=== PATIENT | male | born 1945 | race Caucasian/White ===

== ENCOUNTER 2021-07-11 06:04 | Emergency (ER) | payer OTHER, SELFPAY ==
[2021-07-11] VITALS (11 sets, daily range): BP systolic 127–191; BP diastolic 60–80; PULSE 40–54; RESP 16–22; TEMP 36.1; O2SAT 93–97
--- NOTE | 2021-07-11 06:14 | ED_ITS ---
HPI - Chest Pain <Becki Ko DO - Last Filed: 07/15/21 07:13> General Chief Complaint: Chest Pain Stated Complaint: chest pain Time Seen by Provider: 07/11/21 06:14 History of Present Illness HPI narrative: Patient is a 76-year-old male history of atrial fibrillation with ablation, hypertension hyperlipidemia presenting today with chest discomfort. He got up this morning getting himself ready for work. He a had the some pressure in his chest thought it was acid reflux but it has been continuing on for about 1 hour. It is now radiating up to his jaw and he feels nauseous. He has no shortness of breath with exertion he denies palpitations. He has no prior history of coronary artery disease is. He feels heaviness and pressure in his chest. He i s noted to be quite bradycardic in the 40s he says typically he does have a low heart rate but it is usually in the 50s. Related Data Allergies Allergy/AdvReac Type Severity Reaction Status Date / Time Iodinated Contrast Media Allergy Verified 07/11/21 06:26 codeine AdvReac Verified 07/11/21 06:26 Review of Systems <Becki Ko DO - Last Filed: 07/15/21 07:13> Review of Systems Narrative: GENERAL: Denies chills, fatigue, malaise, fever, sweats, travel HEENT: Denies sinus pain, ear pain, sore throat, difficulty swallowing, neck pain RESPIRATORY: Denies dyspnea, cough, wheezing, hemoptysis, sputum. CARDIOVASCULAR: See HPI GASTROINTESTINAL: Denies nausea, vomiting, abdominal pain, diarrhea, constipa tion, melena. : Denies dysuria, frequency, incontinence, hematuria, urinary retention, flank pain. MUSCULOSKELETAL: Denies weakness, joint pain, or bony pain SKIN: No rash, no erythema, no pruritus NEUROLOGIC: Denies weakness, dizziness, headache, numbness, change in speech, confusion PSYCHIATRIC: No concerning psychosocial issues. 12 point review of systems is negative except for those stated above and HPI Patient History <Becki Ko DO - Last Filed: 07/15/21 07:13> Social History Smoking Status: Never smoker Exam <DO Alfreda Olivier Last Filed: 07/15/21 07:13> Initial Vital Signs Initial Vital Signs: Vital Signs Temperature 97 F L 07/11/21 06:05 Pulse Rate 54 L 07/11/21 06:05 Respiratory Rate 21 07/11/21 06:05 Blood Pressure 191/80 H 07/11/21 06:05 Pulse Oximetry 97 07/11/21 06:05 GENERAL: Alert 76-year-old male appears comfortable. HEENT: Head atraumatic,EOMI, pupils reactive, face symmetric, moist mucous membranes CARDIOVASCULAR: Regular rate and rhythm without murmurs, rubs or gallops. RESPIRATORY: Breath sounds equal bilaterally, no wheezes rales or rhonchi. ABDOMEN: Soft, nontender. Normoactive bowel sounds all 4 quadrants. No guarding or rebound. EXTREMITIES: Normal range of motion, no clubbing or edema. Neurovascularly intact NEUROLOGICAL: Alert and oriented x4.Normal gait and speech. SKIN: Warm, dry, no laceration, no petechiae, no rashes or lesions. <Davy Nagy DO - Last Filed: 07/11/21 09:47> Initial Vital Signs Initial Vital Signs: Vital Signs Temperature 97 F L 07/11/21 06:05 Pulse Rate 54 L 07/11/21 06:05 Respiratory Rate 21 07/11/21 06:05 Blood Pressure 191/80 H 07/11/21 06:05 Pulse Oximetry 97 07/11/21 06:05 Course <Becki Ko DO - Last Filed: 07/15/21 07:13> Orders Ordered: Discontinued Medications Aspirin (Aspirin 81 Mg Chew Tab) 324 mg PO NOW ONE Stop: 07/11/21 06:22 Last Admin: 07/11/21 06:29 Dose: 324 mg Documented by: SYED Nitroglycerin (Nitroglycerin 0.4 Mg Sl Tab) 0.4 mg SL [id number] PRN PRN Reason: Chest Pain Last Admin: 07/11/21 06:42 Dose: 0.4 mg Documented by: Admin: 07/11/21 06:29 Dose: 0.4 mg Documented by: SYED Vital Signs Vital signs: Vital Signs - 8 hr 07/11/21 06:05 Temperature 97 F L Pulse Rate 54 L Respiratory Rate 21 Blood Pressure 191/80 H Pulse Oximetry 97 <DO Alfreda Iglesias Last Filed: 07/11/21 09:47> Orders Ordered: Discontinued Medications Aspirin (Aspirin 81 Mg Chew Tab) 324 mg PO NOW ONE Stop: 07/11/21 06:22 Last Admin: 07/11/21 06:29 Dose: 324 mg Documented by: SYED Nitroglycerin (Nitroglycerin 0.4 Mg Sl Tab) 0.4 mg SL [id number] PRN PRN Reason: Chest Pain Last Admin: 07/11/21 06:42 Dose: 0.4 mg Documented by: Admin: 07/11/21 06:29 Dose: 0.4 mg Documented by: SYED Vital Signs Vital signs: Vital Signs - 8 hr 07/11/21 06:05 Temperature 97 F L Pulse Rate 54 L Respiratory Rate 21 Blood Pressure 191/80 H Pulse Oximetry 97 MDM - Chest Pain <Becki Ko DO - Last Filed: 07/15/21 07:13> Lab Data Result diagrams: 07/11/21 06:15 07/11/21 06:15 Labs: Lab Results 07/11/21 07/11/21 07/11/21 Range/Units 06:15 06:15 06:15 WBC 6.5 (4.5-11.0) X10^3/uL RBC 4.83 (4.5-5.9) X10^6/uL Hgb 14.8 (13.5-17.5) g/dL Hct 43.5 (41-53) % MCV 90.1 (80-100) fL MCH 30.6 (26-34) PG MCHC 33.9 (30-36) % RDW 12.5 (11.6-14.8) % Plt Count 143 L (150-400) X10^3/uL Neut % (Auto) 60.5 (50-75) % Lymph % (Auto) 24.5 L (25-40) % [place] % (Auto) 9.7 (3-14) % Eos % (Auto) 4.8 H (2-4) % Baso % (Auto) 0.5 (0-2) % Neut # (Auto) 4000 (0481-3429) /uL Lymph # (Auto) 1600 (2969-7907) /uL [place] # (Auto) 600 (0-900) /uL Eos # (Auto) 300 (0-450) /uL Baso # (Auto) 0 (0-100) /uL PT 11.0 (10.1-12.7) SECONDS INR 1.0 (0.9-1.3) APTT 30 (26.4-36.2) SECONDS Sodium 137 (137-145) mmol/L Potassium 4.4 (3.4-5.1) mmol/L Chloride 104 (98-107) mmol/L Carbon Dioxide 26 (22-32) mmol/L BUN 24 H (9-20) mg/dL Creatinine 1.28 H (0.66-1.25) mg/dL Estimated GFR 58 L (>60) mL/min BUN/Creatinine Ratio 18.8 (6-22) Glucose 97 (80-110) mg/dL Calcium 8.6 (8.4-10.2) mg/dL Magnesium 2.4 H (1.6-2.3) mg/dL Total Bilirubin 0.8 (0.2-1.3) mg/dL AST 30 (17-59) IU/L ALT 29 (<50) IU/L Alkaline Phosphatase 43 (38-126) U/L Total Creatine Kinase 211 H (55-170) U/L CK-MB (CK-2) 4.76 H (<2.37) ng/mL CK-MB (CK-2) Rel Index 2.3 (1.5-5.0) % Troponin I < 0.012 (0.01-0.034) ng/mL NT-Pro-B Natriuret Pep (<450) pg/mL Total Protein 7.2 (6.3-8.2) g/dL Albumin 4.3 (3.5-5.0) g/dL Globulin 2.9 (1.7-4.1) g/dL Albumin/Globulin Ratio 1.5 (1.0-2.8) Lipase 46 (23-300) U/L 07/11/21 07/11/21 Range/Units 06:15 08:30 WBC (4.5-11.0) X10^3/uL RBC (4.5-5.9) X10^6/uL Hgb (13.5-17.5) g/dL Hct (41-53) % MCV (80-100) fL MCH (26-34) PG MCHC (30-36) % RDW (11.6-14.8) % Plt Count (150-400) X10^3/uL Neut % (Auto) (50-75) % Lymph % (Auto) (25-40) % [place] % (Auto) (3-14) % Eos % (Auto) (2-4) % Baso % (Auto) (0-2) % Neut # (Auto) (1377-7972) /uL Lymph # (Auto) (9912-7579) /uL [place] # (Auto) (0-900) /uL Eos # (Auto) (0-450) /uL Baso # (Auto) (0-100) /uL PT (10.1-12.7) SECONDS INR (0.9-1.3) APTT (26.4-36.2) SECONDS Sodium (137-145) mmol/L Potassium (3.4-5.1) mmol/L Chloride (98-107) mmol/L Carbon Dioxide (22-32) mmol/L BUN (9-20) mg/dL Creatinine (0.66-1.25) mg/dL Estimated GFR (>60) mL/min BUN/Creatinine Ratio (6-22) Glucose (80-110) mg/dL Calcium (8.4-10.2) mg/dL Magnesium (1.6-2.3) mg/dL Total Bilirubin (0.2-1.3) mg/dL AST (17-59) IU/L ALT (<50) IU/L Alkaline Phosphatase (38-126) U/L Total Creatine Kinase (55-170) U/L CK-MB (CK-2) (<2.37) ng/mL CK-MB (CK-2) Rel Index (1.5-5.0) % Troponin I < 0.012 (0.01-0.034) ng/mL NT-Pro-B Natriuret Pep 165 (<450) pg/mL Total Protein (6.3-8.2) g/dL Albumin (3.5-5.0) g/dL Globulin (1.7-4.1) g/dL Albumin/Globulin Ratio (1.0-2.8) Lipase (23-300) U/L Imaging Data Chest x-ray: Radiologist's Impression: t: SuzeJose MR#: [id number] : 1945 Acct:[id number] Age/Sex: 76 / M Date of Service: 07/11/21 Loc: ED Accession Number: [id number] ?? Procedure: XR chest 1V Ordering Provider: Becki Ko D.O. PROCEDURE:? XR CHEST 1V ? INDICATIONS:? chest pain ? TECHNIQUE:? One view of the chest was acquired.? ? COMPARISON:? None. ? FINDINGS:? ? Surgical changes and devices:? Lead less cardiac pacer.? Surgical clips project over the mid mediastinum.? ? Lungs and pleura:? Lungs are clear.? No pleural effusions or pneumothorax.? Eventration of the right hemidiaphragm.? ? Mediastinum:? Mediastinal contours appear normal.? Heart size is normal.? ? Bones and chest wall:? Prior resection of distal right clavicle.? No suspicious bony lesions.? Overlying soft tissues appear unremarkable.? ? IMPRESSION:? No acute cardiopulmonary disease process. ? ? Dictated by: Patricia Dominguez MD, PhD on 07/11/2021 at 7:54 ? ? ECG Data Interpretation: EKG number rhythm rate [address] elevations Q-wave noted in aVL no priors to compare MDM Narrative Medical decision making narrative: Patient's symptoms and history are certainly concerning. Initial troponin is negative. Patient is signed out to Dr. Nagy for further management. <Davy Nagy, DO - Last Filed: 07/11/21 09:47> Lab Data Labs: Lab Results 07/11/21 07/11/21 07/11/21 Range/Units 06:15 06:15 06:15 WBC 6.5 (4.5-11.0) X10^3/uL RBC 4.83 (4.5-5.9) X10^6/uL Hgb 14.8 (13.5-17.5) g/dL Hct 43.5 (41-53) % MCV 90.1 (80-100) fL MCH 30.6 (26-34) PG MCHC 33.9 (30-36) % RDW 12.5 (11.6-14.8) % Plt Count 143 L (150-400) X10^3/uL Neut % (Auto) 60.5 (50-75) % Lymph % (Auto) 24.5 L (25-40) % [place] % (Auto) 9.7 (3-14) % Eos % (Auto) 4.8 H (2-4) % Baso % (Auto) 0.5 (0-2) % Neut # (Auto) 4000 (9524-4347) /uL Lymph # (Auto) 1600 (4879-9940) /uL [place] # (Auto) 600 (0-900) /uL Eos # (Auto) 300 (0-450) /uL Baso # (Auto) 0 (0-100) /uL PT 11.0 (10.1-12.7) SECONDS INR 1.0 (0.9-1.3) APTT 30 (26.4-36.2) SECONDS Sodium 137 (137-145) mmol/L Potassium 4.4 (3.4-5.1) mmol/L Chloride 104 (98-107) mmol/L Carbon Dioxide 26 (22-32) mmol/L BUN 24 H (9-20) mg/dL Creatinine 1.28 H (0.66-1.25) mg/dL Estimated GFR 58 L (>60) mL/min BUN/Creatinine Ratio 18.8 (6-22) Glucose 97 (80-110) mg/dL Calcium 8.6 (8.4-10.2) mg/dL Magnesium 2.4 H (1.6-2.3) mg/dL Total Bilirubin 0.8 (0.2-1.3) mg/dL AST 30 (17-59) IU/L ALT 29 (<50) IU/L Alkaline Phosphatase 43 (38-126) U/L Total Creatine Kinase 211 H (55-170) U/L CK-MB (CK-2) 4.76 H (<2.37) ng/mL CK-MB (CK-2) Rel Index 2.3 (1.5-5.0) % Troponin I < 0.012 (0.01-0.034) ng/mL NT-Pro-B Natriuret Pep (<450) pg/mL Total Protein 7.2 (6.3-8.2) g/dL Albumin 4.3 (3.5-5.0) g/dL Globulin 2.9 (1.7-4.1) g/dL Albumin/Globulin Ratio 1.5 (1.0-2.8) Lipase 46 (23-300) U/L 04/28/22 04/28/22 Range/Units 06:15 08:30 WBC (4.5-11.0) X10^3/uL RBC (4.5-5.9) X10^6/uL Hgb (13.5-17.5) g/dL Hct (41-53) % MCV (80-100) fL MCH (26-34) PG MCHC (30-36) % RDW (11.6-14.8) % Plt Count (150-400) X10^3/uL Neut % (Auto) (50-75) % Lymph % (Auto) (25-40) % [place] % (Auto) (3-14) % Eos % (Auto) (2-4) % Baso % (Auto) (0-2) % Neut # (Auto) (8256-6649) /uL Lymph # (Auto) (2724-7734) /uL [place] # (Auto) (0-900) /uL Eos # (Auto) (0-450) /uL Baso # (Auto) (0-100) /uL PT (10.1-12.7) SECONDS INR (0.9-1.3) APTT (26.4-36.2) SECONDS Sodium (137-145) mmol/L Potassium (3.4-5.1) mmol/L Chloride (98-107) mmol/L Carbon Dioxide (22-32) mmol/L BUN (9-20) mg/dL Creatinine (0.66-1.25) mg/dL Estimated GFR (>60) mL/min BUN/Creatinine Ratio (6-22) Glucose (80-110) mg/dL Calcium (8.4-10.2) mg/dL Magnesium (1.6-2.3) mg/dL Total Bilirubin (0.2-1.3) mg/dL AST (17-59) IU/L ALT (<50) IU/L Alkaline Phosphatase (38-126) U/L Total Creatine Kinase (55-170) U/L CK-MB (CK-2) (<2.37) ng/mL CK-MB (CK-2) Rel Index (1.5-5.0) % Troponin I < 0.012 (0.01-0.034) ng/mL NT-Pro-B Natriuret Pep 165 (<450) pg/mL Total Protein (6.3-8.2) g/dL Albumin (3.5-5.0) g/dL Globulin (1.7-4.1) g/dL Albumin/Globulin Ratio (1.0-2.8) Lipase (23-300) U/L Discharge Plan Departure Patient Disposition: Home Clinical Impression: Chest pain Instructions: DI for Chest Pain Activity Restrictions/Additional Instructions: I recommend that you continue to take all of your medications as directed. It is important that you contact your clock and watch hands dipper for a follow-up to discuss the indications for a stress test. Please return to the emergency department for any new or worsening symptoms. <Davy Nagy, DO - Last Filed: 07/11/21 09:47> Cosign ED Attending Cosignature Attestation: Dr Nagy Co-Sign Statement: I was available for consultation during this patient's emergency department visit. This chart is signed by myself for adm inistrative purposes only. I did not have direct contact with this patient during this visit. They were seen independently by the APC.
--- NOTE | 2021-07-11 06:21 | DI.RAD.S_ITS ---
PROCEDURE: XR CHEST 1V INDICATIONS: chest pain TECHNIQUE: One view of the chest was acquired. COMPARISON: None. FINDINGS: Surgical changes and devices: Lead less cardiac pacer. Surgical clips project over the mid mediastinum. Lungs and pleura: Lungs are clear. No pleural effusions or pneumothorax. Eventration of the right hemidiaphragm. Mediastinum: Mediastinal contours appear normal. Heart size is normal. Bones and chest wall: Prior resection of distal right clavicle. No suspicious bony lesions. Overlying soft tissues appear unremarkable. IMPRESSION: No acute cardiopulmonary disease process. Dictated by: Patricia Dominguez MD, PhD on 07/11/2021 at 7:54 Approved by: Patricia Dominguez MD, PhD on 07/11/2021 at 7:55
[2021-07-11] MEDS: NITROGLYCERIN 0.4 MG SL TAB SL ×2 (06:29→06:42)
[2021-07-11] MEDS: ASPIRIN 81 MG CHEW TAB 324 MG PO (06:29)
[2021-07-11 06:32] LABS: Add Manual Diff / Slide Review NO; Basophils Absolute Auto 0 /uL (0-100); Basophils Percent Auto 0.5 % (0-2); Eosinophils Absolute Auto 300 /uL (0-450); Eosinophils Percent Auto 4.8 % (2-4); Hematocrit 43.5 % (41-53); Hemoglobin 14.8 g/dL (13.5-17.5); Lymphocytes Absolute Auto 1600 /uL (1100-4500); Lymphocytes Percent Auto 24.5 % (25-40); Mean Corpuscular HGB Conc 33.9 % (30-36); Mean Corpuscular Hemoglobin 30.6 PG (26-34); Mean Corpuscular Volume 90.1 fL (80-100); Monocytes Absolute Auto 600 /uL (0-900); Monocytes Percent Auto 9.7 % (3-14); Neutrophils Absolute Auto 4000 /uL (1500-7000); Neutrophils Percent Auto 60.5 % (50-75); Platelet Count 143 X10^3/uL (150-400); Red Blood Cell Count 4.83 X10^6/uL (4.5-5.9); Red Cell Distribution Width 12.5 % (11.6-14.8); White Blood Cell Count 6.5 X10^3/uL (4.5-11.0)
[2021-07-11 06:39] LABS: PTT Partial Thromboplastin Tim 30 SECONDS (26.4-36.2)
[2021-07-11 06:41] LABS: Alanine Aminotransferase 29 IU/L (<50); Albumin 4.3 g/dL (3.5-5.0); Albumin Globulin Ratio 1.5 (1.0-2.8); Alkaline Phosphatase 43 U/L (38-126); Aspartate Aminotransferase 30 IU/L (17-59); BUN Creatinine Ratio 18.8 (6-22); Bilirubin Total 0.8 mg/dL (0.2-1.3); Blood Urea Nitrogen 24 mg/dL (9-20); Calcium 8.6 mg/dL (8.4-10.2); Carbon Dioxide 26 mmol/L (22-32); Chloride 104 mmol/L (98-107); Creatine Kinase 211 U/L (55-170); Estimated Glomerular Filt Rate 58 mL/min (>60); Globulin 2.9 g/dL (1.7-4.1); Glucose 97 mg/dL (80-110); HEMOLYSIS < 15 (0-50); Lipase 46 U/L (23-300); Magnesium 2.4 mg/dL (1.6-2.3); Potassium 4.4 mmol/L (3.4-5.1); Sodium 137 mmol/L (137-145); Total Protein 7.2 g/dL (6.3-8.2)
[2021-07-11 06:52] LABS: Troponin I < 0.012 ng/mL (0.01-0.034)
[2021-07-11 06:56] LABS: CKMB % Relative Index 2.3 % (1.5-5.0); Creatine Kinase MB 4.76 ng/mL (<2.37)
[2021-07-11 07:16] LABS: NT-proBNP (BNP-Adult 18+) 165 pg/mL (<450)
[2021-07-11 09:25] LABS: Troponin I < 0.012 ng/mL (0.01-0.034)
== END 2021-07-11 10:03 | disposition home or self-care (01) ==
PROVIDERS: Emergency Medicine; Emergency Provider Emergency Medicine
DX: R07.9 Chest pain, unspecified (principal); R00.1 Bradycardia, unspecified
CPT/HCPCS: 36415; 71045; 80053; 82550; 82553; 83690; 83735; 83880; 84484; 85025; 85610; 85730; 93005; 99284

== ENCOUNTER → 2021-12-27 14:20 | Outpatient (CLI) | payer OTHER, SELFPAY | PROVIDERS: Referring Provider Internal Medicine; Visit Provider Internal Medicine | DX: Z23 Encounter for immunization (principal) | CPT/HCPCS: 90471; 90662 ==